=== PATIENT | male | born 1980 | race Caucasian/White ===

== ENCOUNTER 2017-01-25 19:22 | Emergency (ER) | payer SELFPAY ==
[2017-01-25 19:36] VITALS: BP 119/82; PULSE 67; TEMP 98.2; BMI 29.0
[2017-01-25] MEDS ORDERED: SODIUM CHLORIDE 0.9% 500 ML INFUS.BAG IV ONE ×2 (20:56→22:54)
[2017-01-25] MEDS ORDERED: KETOROLAC TROMETHAMINE 30 MG/1 ML VIAL IVPUSH ONE (20:56)
[2017-01-25 20:59] LABS: BASOPHIL 0.7 % (0-2.0); EOSINOPHIL 4.6 % (0-4.5); MCH 31.1 pg (25.7-33.7); MCHC 34.1 g/dl (32.0-35.9); MEAN PLT VOLUME 8.1 fl (7.5-11.1); NEUTROPHILS 58.4 % (42.8-82.8); PLATELET COUNT 224 K/MM3 (134-434); RDW 13.4 % (11.9-15.9); WHITE BLOOD COUNT 7.2 K/mm3 (4.0-10.0)
--- NOTE | 2017-01-25 21:09 | PDOC ---
History of Present Illness - General History Source: Patient Exam Limitations: No Limitations, Language Barrier (greek - translate via [employer] ) - History of Present Illness Initial Comments: 01/25/17 21:23 The patient is a 36 year old [place]ian speaking male (translate via [employer]) with no significant past medical history who presents to the ED with 4 days of right flank pain. Patient reports his pain radiates down to the right leg and his pain increased sometimes with urination. He also reports multiple episodes of grossly red blood and states it is difficult to initiate urine stream. Denies dysuria, frequency, or urgency. Patient reports groin pain in the perineal area, but denies trauma to the area and states he endorses a headache from the pain. The patient denies fever, chills, cough, SOB, chest pain, and palpitations. The patient denies nausea, vomiting, and diarrhea. Allergies: NKDA Social History: No alcohol, tobacco, or drug use reported. Past Surgical History: None reported PCP: Dr. Sujatha Yuan <Cassie Virk - Last Filed: 01/25/17 22:41> <Blaise Ledesma - Last Filed: 01/26/17 01:42> - General Chief Complaint: Hematuria Stated Complaint: HEMATURIA Time Seen by Provider: 01/25/17 20:00 Past History <Cassie Virk - Last Filed: 01/25/17 22:41> - Psycho/Social/Smoking Cessation Hx Suicidal Ideation: No Smoking History: Never smoked Substance Use Type: None <Blaise Ledesma - Last Filed: 01/26/17 01:42> - Past Medical History Allergies/Adverse Reactions: Allergies Allergy/AdvReac Type Severity Reaction Status Date / Time No Known Allergies Allergy Verified 01/25/17 19:36 Home Medications: Ambulatory Orders Acetaminophen [Tylenol] 650 mg PO QID PRN 01/25/17 Review of Systems - Review of Systems Able to Perform ROS?: Yes Comments:: 01/25/17 21:23 GENERAL/CONSTITUTIONAL: No fever or chills. No weakness. HEAD, EYES, EARS, NOSE AND THROAT: No change in vision. No ear pain or discharge. No sore throat. CARDIOVASCULAR: No chest pain or shortness of breath. RESPIRATORY: No cough, wheezing, or hemoptysis. GASTROINTESTINAL: +groin pain in the perineal area No nausea, vomiting, diarrhea or constipation. GENITOURINARY: +right flank pain radiating down the right leg, hematuria No dysuria, frequency MUSCULOSKELETAL: No joint or muscle swelling. No neck or back pain. SKIN: No rash NEUROLOGIC: +headache No vertigo, loss of consciousness, or change in strength/ sensation. ENDOCRINE: No increased thirst. No abnormal weight change. HEMATOLOGIC/LYMPHATIC: No anemia, easy bleeding, or history of blood clots. ALLERGIC/IMMUNOLOGIC: No hives or skin allergy. <Cassie Virk - Last Filed: 01/25/17 22:41> *Physical Exam - Vital Signs Last Vital Signs Temp Pulse Resp BP Pulse Ox 98.2 F 67 16 119/82 99 01/25/17 19:35 01/25/17 19:35 01/25/17 19:35 01/25/17 19:35 01/25/17 19:35 - Physical Exam Comments: 01/25/17 21:24 GENERAL: Awake, alert, and fully oriented, in no acute distress HEAD: No signs of trauma EYES: PERRLA, EOMI, sclera anicteric, conjunctiva clear ENT: Auricles normal inspection, hearing grossly normal, nares patent, oropharynx clear without exudates. Moist mucosa NECK: Normal ROM, supple, no lymphadenopathy, JVD, or masses LUNGS: Breath sounds equal, clear to auscultation bilaterally. No wheezes, and no crackles HEART: Regular rate and rhythm, normal S1 and S2, no murmurs, rubs or gallops ABDOMEN: Soft, nontender, normoactive bowel sounds. No guarding, no rebound. No masses MUSCULOSKELETAL: R CVA tenderness. Slight antalgia. EXTREMITIES: Normal range of motion, no edema. No clubbing or cyanosis. No cords, erythema, or tenderness NEUROLOGICAL: Cranial nerves II through XII grossly intact. Normal speech, normal gait SKIN: Warm, Dry, normal turgor, no rashes or lesions noted. <Cassie Virk - Last Filed: 01/25/17 22:41> - Vital Signs Last Vital Signs Temp Pulse Resp BP Pulse Ox 98.2 F 67 16 119/82 99 01/25/17 19:35 01/25/17 19:35 01/25/17 19:35 01/25/17 19:35 01/25/17 19:35 <Blaise Ledesma - Last Filed: 01/26/17 01:42> ED Treatment Course - LABORATORY CBC & Chemistry Diagram: 01/25/17 20:45 - ADDITIONAL ORDERS Additional order review: 01/25/17 20:45 RBC 4.52 MCV 91.0 MCHC 34.1 RDW 13.4 MPV 8.1 Neutrophils % 58.4 Lymphocytes % 28.2 Monocytes % 8.1 Eosinophils % 4.6 H Basophils % 0.7 - RADIOLOGY Radiograph Interpretation: 01/25/17 22:41 CT/ABDOMEN PELVIS CT W/O CONTR Radiologist's Impression: Impression: There is no evidence of hydroureteronephrosis, renal or ureteral stone, bilaterally. Diverticulosis coli without evidence of acute diverticulitis. - Medications Given in the ED: ED Medications Discontinued Medications Generic Name Dose Route Start Last Admin Trade Name Freq PRN Reason Stop Dose Admin Ketorolac Tromethamine 30 mg 01/25/17 20:56 01/25/17 21:12 Toradol Injection - IVPUSH 01/25/17 20:57 30 mg ONCE ONE Administration Sodium Chloride 1,000 ml 01/25/17 20:56 01/25/17 21:12 Normal Saline - IV 01/25/17 20:57 1,000 ml ONCE ONE Administration <Cassie Virk - Last Filed: 01/25/17 22:41> - LABORATORY CBC & Chemistry Diagram: 01/25/17 20:45 01/25/17 22:54 - ADDITIONAL ORDERS Additional order review: 01/25/17 20:45 RBC 4.52 MCV 91.0 MCHC 34.1 RDW 13.4 MPV 8.1 Neutrophils % 58.4 Lymphocytes % 28.2 Monocytes % 8.1 Eosinophils % 4.6 H Basophils % 0.7 - RADIOLOGY Radiology Studies Ordered: Category Date Time Status ABDOMEN & PELVIS CT W/O CONTR [CT] Stat CT Scan 01/25/17 20:55 Ordered <Blaise Ledesma - Last Filed: 01/26/17 01:42> Medical Decision Making - Medical Decision Making 01/25/17 21:08 This is a 36yo m with 4 days of RIGHT flank pain with radiation to the groin and hematuria. He looks well and well hydrated, mild antalgia RIGHT leg; otherwise negative evaluation. Will have UA, CBC and CT abd/pelvis. 01/25/17 21:55 01/25/17 22:47 His evaluation is negative aside from red hue of the urine without RBC's. 01/25/17 22:47 01/26/17 01:35 CPK is mildly elevated, which is cleared with two liters NS; he will be given referral to urology/nephrology and encouraged to follow up with PMD in the am as well; aggressive hydration, nutrition as tolerated. 01/26/17 01:42 <Blaise Ledesma - Last Filed: 01/26/17 01:42> *DC/Admit/Observation/Transfer - Attestations Scribe Attestion: 01/25/17 21:24 Documentation prepared by Cassie Virk, acting as medical i d sales for Blaise Ledesma MD, MD <Cassie Virk - Last Filed: 01/25/17 22:41> - Discharge Dispostion Admit: No Decision to Admit order Date/Time: 01/26/17 01:39 <Blaise Ledesma - Last Filed: 01/26/17 01:42> Diagnosis at time of Disposition: Rhabdomyolysis Qualifiers: Rhabdomyolysis type: non-traumatic Qualified Code(s): M62.82 - Rhabdomyolysis Back pain Qualifiers: Back pain location: low back pain Chronicity: unspecified Back pain laterality : unspecified Sciatica presence: without sciatica Qualified Code(s): M54.5 - Low back pain - Discharge Dispostion Disposition: HOME Condition at time of disposition: Good - Referrals Referrals: Dread Pelaez MD [Staff Physician] - Lorraine Reynolds MD [Staff Physician] - - Patient Instructions Printed Discharge Instructions: Rhabdomyolysis Additional Instructions: At this time, there is no specific understanding as to why the urine is red in color. There is no blood detected thankfully. There is a suggestion of something called rhabdomyolysis which can come from a number of causes. 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 Print Language: CITIZEN OF [place]
[2017-01-25] MEDS ORDERED: KETOROLAC TROMETHAMINE 30 MG/1 ML VIAL ONE (21:11)
[2017-01-25 21:23] LABS: URINE BILIRUBIN NEGATIVE (NEGATIVE); URINE BLOOD NEGATIVE (NEGATIVE); URINE COLOR RED; URINE GLUCOSE (UA) NEGATIVE (NEGATIVE); URINE KETONE NEGATIVE (NEGATIVE); URINE LEUK ESTERASE NEGATIVE (NEGATIVE); URINE NITRITE NEGATIVE (NEGATIVE); URINE PROTEIN NEGATIVE (NEGATIVE); URINE UROBILINOGEN NEGATIVE E.U./dl (0.2-1.0)
[2017-01-25 21:35] LABS: URINE APPEARANCE SL CLOUDY
[2017-01-25 23:39] LABS: ALBUMIN 4.1 g/dl (3.4-5.0); ALK PHOS 95 U/L (45-117); ANION GAP 11 (8-16); BILIRUBIN,TOTAL 0.3 mg/dL (0.2-1.0); CALCIUM 9.1 mg/dL (8.5-10.1); CO2 25 mmol/L (21-32); COCKROFT - GAULT 104.28; CREATININE 1.2 mg/dL (0.7-1.3); GLUCOSE,RANDOM 93 mg/dL (74-106); SGOT/AST 32 U/L (15-37); SGPT/ALT 39 U/L (12-78); TOT PROT 7.4 g/dl (6.4-8.2)
== END 2017-01-26 02:08 | disposition home or self-care (01) ==
LOC: JER 19:22
PROC: 3E0333Z Introduction of Anti-inflammatory into Peripheral Vein, Percutaneous Approach (ICD-10-PCS; principal; 2017-01-25)
DX: M62.82 Rhabdomyolysis (principal)
CPT/HCPCS: 36415; 74176-TC; 80053; 81003; 82550; 82553; 85025; 99283-25

== ENCOUNTER 2022-06-02 12:03 | Emergency (ER) | payer SELFPAY ==
[2022-06-02 12:28] VITALS: BP 125/86; PULSE 77; RESP 19; TEMP 97.9; BMI 23.0
[2022-06-02] MEDS ORDERED: IBUPROFEN 600 MG TABLET (FP) PO ONE ×2 (13:51→14:14)
[2022-06-02] MEDS ORDERED: ACETAMINOPHEN 500 MG TABLET (FP) PO ONE (13:51)
[2022-06-02] MEDS ORDERED: ACETAMINOPHEN 500 MG TABLET (FP) ONE (14:14)
[2022-06-02 14:22] LABS: PH,URINE 6.5 (5.0-8.0); URINE APPEARANCE CLEAR; URINE BILIRUBIN NEGATIVE (NEGATIVE); URINE COLOR YELLOW; URINE GLUCOSE (UA) NEGATIVE (NEGATIVE); URINE KETONE NEGATIVE (NEGATIVE); URINE LEUK ESTERASE NEGATIVE (NEGATIVE); URINE NITRITE NEGATIVE (NEGATIVE); URINE PROTEIN NEGATIVE (NEGATIVE); URINE UROBILINOGEN 0.2 mg/dL (0.2-1.0)
== END 2022-06-02 19:28 | disposition home or self-care (01) ==
LOC: JER 12:03 → JERFT 12:03
DX: N43.3 Hydrocele, unspecified (principal); N50.3 Cyst of epididymis
CPT/HCPCS: 36415; 76856-TC; 76870-TC; 81003; 86780; 87086; 87491; 87591; 99284-25

== ENCOUNTER 2022-09-22 19:33 | Emergency (ER) | payer OTHER ==
[2022-09-22 19:38] VITALS: BP 137/77; PULSE 74; RESP 18; TEMP 97; BMI 28.1
[2022-09-22] MEDS ORDERED: FAMOTIDINE 20 MG TABLET PO ONE (20:47)
[2022-09-22] MEDS ORDERED: diphenhydrAMINE HCL 25 MG CAPSULE (FP) PO ONE ×2 (20:47→21:21)
[2022-09-22] MEDS ORDERED: predniSONE 20 MG TABLET (UD) PO ONE (20:47)
[2022-09-22] MEDS ORDERED: predniSONE 20 MG TABLET (UD) ONE ×2 (21:21→21:34)
[2022-09-22] MEDS ORDERED: FAMOTIDINE 20 MG TABLET ONE (21:21)
== END 2022-09-22 21:48 | disposition home or self-care (01) ==
LOC: JER 19:33 → JERFT 19:33
DX: R21 Rash and other nonspecific skin eruption (principal)
CPT/HCPCS: 99283-25

== ENCOUNTER 2024-08-23 00:07 | Observation (INO) | payer OTHER ==
[2024-08-23 00:35] VITALS: BMI 31.3
[2024-08-23] MEDS ORDERED: ONDANSETRON 4 MG/2 ML VIAL ONE (00:49)
[2024-08-23] MEDS ORDERED: ACETAMINOPHEN INJECTION 100 ML ONE ×2 (00:49→08:05)
[2024-08-23] MEDS ORDERED: FAMOTIDINE 20 MG/50 ML IVPB 20 MG/50 ML MG IVPB ONE (00:49)
[2024-08-23] MEDS: ACETAMINOPHEN 1000 MG/100 ML BAG IVPB ONE ×2 (01:00→08:13)
[2024-08-23] MEDS: ONDANSETRON 4 MG/2 ML VIAL IVPB ONE (01:00)
[2024-08-23 01:16] LABS: BASO % 0.3 % (0-2.0); EOS % 0.3 % (0-4.5); HEMATOCRIT 39.5 % (35.4-49); HEMOGLOBIN 14.1 GM/dL (11.7-16.9); LYMPH % 14.6 % (8-40); MCH 31.8 pg (25.7-33.7); MCHC 35.8 g/dl (32.0-35.9); MEAN CELL VOLUME 88.8 fl (80-96); MEAN PLT VOLUME 7.7 fl (7.5-11.1); MONO % 8.4 % (3.8-10.2); NEUT % 76.4 % (42.8-82.8); PLATELET COUNT 190 10^3/uL (134-434); RBC 4.45 M/mm3 (4.00-5.60); RDW 13.7 % (11.9-15.9); WHITE BLOOD COUNT 8.9 K/mm3 (4.0-10.0)
[2024-08-23] MEDS: FAMOTIDINE 20 MG/50 ML IVPB 20 MG/50 ML MG IVPB ONE (01:27)
[2024-08-23 01:35] LABS: POTASSIUM 3.7 mmol/L (3.5-5.1)
[2024-08-23 01:37] LABS: CALCIUM 8.1 mg/dL (8.5-10.1)
[2024-08-23 01:38] LABS: BLOOD UREA NITROGEN 16.3 mg/dL (7-18)
[2024-08-23 01:41] LABS: CREATININE 0.9 mg/dL (0.55-1.3)
[2024-08-23 01:42] LABS: BILIRUBIN,TOTAL 0.3 mg/dL (0.2-1); TOT PROT 6.4 g/dl (6.4-8.2)
[2024-08-23 02:15] LABS: URINE APPEARANCE CLEAR; URINE COLOR YELLOW; URINE GLUCOSE (UA) NEGATIVE (NEGATIVE)
[2024-08-23 02:16] LABS: URINE BILIRUBIN NEGATIVE (NEGATIVE); URINE KETONE NEGATIVE (NEGATIVE); URINE NITRITE NEGATIVE (NEGATIVE); URINE PROTEIN 30 (NEGATIVE)
[2024-08-23 02:17] LABS: URINE LEUK ESTERASE NEGATIVE (NEGATIVE)
[2024-08-23] MEDS ORDERED: CIPROFLOXACIN 500 MG TABLET (RESTRICTED TO ID) PO ONE (04:41)
[2024-08-23] MEDS ORDERED: metroNIDAZOLE 500 MG TABLET PO ONE (04:42)
[2024-08-23] MEDS ORDERED: metroNIDAZOLE 250 MG TABLET PO ONE (04:53)
[2024-08-23] MEDS ORDERED: CIPROFLOXACIN 400 MG/D5W 400 MG/200 ML IVPB IVPB ONE (04:58)
[2024-08-23] MEDS ORDERED: morphine SULFATE 4 MG/ML VIAL ONE (08:05)
[2024-08-23] MEDS: morphine CARPU-JECT 4 MG/1 ML DISP.SYRIN IVPUSH ONE (08:13)
[2024-08-23] MEDS: LACTATED RINGERS SOLUTION 1,000 ML/1,000 ML INFUS.BAG IV SCH (09:58)
[2024-08-23] MEDS: CEFTRIAXONE 1 G/50 ML PREMIX 50 ML IVPB SCH (16:53)
[2024-08-23] MEDS: ACETAMINOPHEN 500 MG TABLET (FP) PO PRN (21:25)
[2024-08-24 10:11] LABS: BASO % 0.3 % (0-2.0); EOS % 0.3 % (0-4.5); HEMATOCRIT 36.1 % (35.4-49); HEMOGLOBIN 12.6 GM/dL (11.7-16.9); LYMPH % 26.5 % (8-40); MCH 31.3 pg (25.7-33.7); MCHC 34.9 g/dl (32.0-35.9); MEAN CELL VOLUME 89.6 fl (80-96); MEAN PLT VOLUME 7.8 fl (7.5-11.1); MONO % 11.3 % (3.8-10.2); NEUT % 61.6 % (42.8-82.8); PLATELET COUNT 214 10^3/uL (134-434); RBC 4.03 M/mm3 (4.00-5.60); RDW 13.8 % (11.9-15.9); WHITE BLOOD COUNT 5.3 K/mm3 (4.0-10.0)
[2024-08-24 10:22] LABS: POTASSIUM 3.3 mmol/L (3.5-5.1)
[2024-08-24 10:25] LABS: CALCIUM 8.4 mg/dL (8.5-10.1)
[2024-08-24 10:26] LABS: BLOOD UREA NITROGEN 10.6 mg/dL (7-18)
[2024-08-24] MEDS: PEG 3350/NA SULF BICARB CL/KCL 4000 ML SOLN.RECON PO ONE (16:16)
[2024-08-24] MEDS: POTASSIUM CHLORIDE TABS 20 MEQ TABLET.ER (FP) PO SCH (18:11)
[2024-08-25 13:26] VITALS: RESP 18
[2024-08-26 08:37] VITALS: BP 123/70; PULSE 71; TEMP 98.4
[2024-08-26 10:26] LABS: BASO % 0.4 % (0-2.0); EOS % 0.2 % (0-4.5); HEMATOCRIT 39.7 % (35.4-49); HEMOGLOBIN 13.8 GM/dL (11.7-16.9); MCH 31.1 pg (25.7-33.7); MCHC 34.6 g/dl (32.0-35.9); MEAN CELL VOLUME 89.9 fl (80-96); MEAN PLT VOLUME 7.4 fl (7.5-11.1); MONO % 5.7 % (3.8-10.2); NEUT % 67.7 % (42.8-82.8); PLATELET COUNT 260 10^3/uL (134-434); RBC 4.42 M/mm3 (4.00-5.60); RDW 13.7 % (11.9-15.9); WHITE BLOOD COUNT 6.4 K/mm3 (4.0-10.0)
[2024-08-26 10:43] LABS: POTASSIUM 3.7 mmol/L (3.5-5.1)
[2024-08-26 10:46] LABS: ALBUMIN 3.1 g/dl (3.4-5.0); BLOOD UREA NITROGEN 11.7 mg/dL (7-18); CALCIUM 8.7 mg/dL (8.5-10.1)
[2024-08-26 10:49] LABS: CREATININE 0.9 mg/dL (0.55-1.3)
[2024-08-26 10:51] LABS: BILIRUBIN,TOTAL 0.3 mg/dL (0.2-1)
[2024-08-26 10:52] LABS: TOT PROT 6.2 g/dl (6.4-8.2)
== END 2024-08-26 16:04 | disposition home or self-care (01) ==
LOC: JER 00:07 → UNDOADMOB 05:23 → INTOOBSV 05:23 → JERBED 05:23 → J6S 15:35 → JERBED 08-24 19:48
PROVIDERS: ADMIT Internal Medicine; ATTEND Internal Medicine
PROC: 3E03329 Introduction of Other Anti-infective into Peripheral Vein, Percutaneous Approach (ICD-10-PCS; 2024-08-24)
PROC: 3E033NZ Introduction of Analgesics, Hypnotics, Sedatives into Peripheral Vein, Percutaneous Approach (ICD-10-PCS; 2024-08-24)
PROC: 0DBK8ZX Excision of Ascending Colon, Via Natural or Artificial Opening Endoscopic, Diagnostic (ICD-10-PCS; principal; 2024-08-25 10:30)
DX: K52.9 Noninfective gastroenteritis and colitis, unspecified (principal); K92.1 Melena; R73.03 Prediabetes
CPT/HCPCS: 36415; 74177-TC; 80048; 80053; 81003; 82272; 83605; 83690; 85025; 87045; 87046; 87086; 87205; 87324; 87449; 88305-TC; 96365; 96366; 96367; 96375; 96376; 99285-25; G0378; J0131; Q9967

== ENCOUNTER 2025-03-25 22:31 | Emergency (ER) | payer OTHER ==
[2025-03-25 22:37] VITALS: BP 139/84; PULSE 66; RESP 18; TEMP 98.2; BMI 32.3
[2025-03-26] MEDS ORDERED: IBUPROFEN 400 MG TABLET (FP) PO ONE (00:35)
[2025-03-26] MEDS ORDERED: AMOX TR/POT CLAV 875MG/125MG TABLETS (FP) ONE (00:35)
[2025-03-26] MEDS: IBUPROFEN 400 MG TABLET (FP) PO ONE (01:00)
[2025-03-26] MEDS: AMOX TR/POT CLAV 875MG/125MG TABLETS (FP) PO ONE (01:00)
[2025-03-26 02:34] LABS: HCV DIAGNOSTIC IN-HOUSE W/RFLX NON-REACTIVE (NONREACTIVE); HIV INTERPRETATION NEGATIVE (NEGATIVE)
== END 2025-03-26 01:21 | disposition home or self-care (01) ==
LOC: JER 22:31
DX: L73.9 Follicular disorder, unspecified (principal); K62.89 Other specified diseases of anus and rectum
CPT/HCPCS: 36415; 86803; 87389; 99283-25